=== PATIENT | female | born 1990 | race Caucasian/White ===

== ENCOUNTER 2019-05-28 08:00 | Inpatient (IN) ==
[2019-05-28] MEDS ORDERED: Ondansetron 4 MG/2 ML VIAL IVP PRN ×3 (08:25→10:13)
[2019-05-28] MEDS ORDERED: *HR* Nalbuphine 10 MG/ML AMPUL IVP PRN ×3 (08:25→10:14)
[2019-05-28] MEDS ORDERED: Famotidine 20 MG/2 ML VIAL IVP PRN ×3 (08:25→10:12)
[2019-05-28] MEDS ORDERED: Lidocaine 1% 20 ML MDV INFILT PRN (08:25)
[2019-05-28] MEDS ORDERED: Naloxone 0.4 MG/ML INJ IVP PRN ×3 (08:25→10:12)
[2019-05-28] MEDS ORDERED: Metoclopramide 10 MG/2 ML VIAL IVP PRN ×3 (08:25→10:10)
[2019-05-28] MEDS ORDERED: Oxytocin 20 units/ LR 1000 mL 20 UNIT/1,000 ML BAG IVC SCH ×3 (08:30→21:57)
[2019-05-28] MEDS ORDERED: Ringers Solution, Lactated 1,000 ML IVC SCH (08:30)
[2019-05-28 09:37] LABS: Basophils % 0.2 %; Eosinophils # 0.1 K/mcL (0.0-0.6); Eosinophils % 0.4 %; Hematocrit 41.9 % (35.3-44.9); Hemoglobin 14.5 g/dL (11.5-15.4); Immature Granulocytes % 0.8 % (0-4); Lymphocytes # 2.6 K/mcL (0.6-4.6); Mean Corpuscular HGB Conc 34.6 g/dL (31.6-35.5); Mean Corpuscular Hemoglobin 33.6 pg (28.0-33.3); Mean Corpuscular Volume 97.2 fL (83.0-100.0); Mean Platelet Volume 8.7 fL (9.4-12.4); Monocytes # 1.2 K/mcL (0.0-1.3); Monocytes % 8.3 %; Neutrophils # 10.6 K/mcL (1.6-8.9); Platelet Count 214 K/mcL (140-400); Red Blood Count 4.31 M/mcL (3.82-4.97); Red Cell Distribution Width 13.5 % (11.5-14.5); Segmented Neutrophils % 72.3 %; White Blood Count 14.6 K/mcL (4.3-11.1)
[2019-05-28] MEDS ORDERED: Epidural Premix (fent/bupiv) 110 ML EP SCH (13:45)
[2019-05-28] MEDS ORDERED: Ringers Solution, Lactated 1,000 ML ONE (14:01)
[2019-05-28] MEDS ORDERED: EPHEDrine 50 MG/ML VIAL ONE (14:54)
[2019-05-28] MEDS ORDERED: Benzocaine/Menthol 56 GM AEROSOL SPRAY TP PRN (21:57)
[2019-05-28] MEDS ORDERED: Acetaminophen 325 MG TABLET PO PRN (21:57)
[2019-05-28] MEDS ORDERED: Lanolin 7 G OINT...G. TP PRN (21:57)
[2019-05-28] MEDS ORDERED: Ibuprofen 600 MG TABLET PO PRN (21:57)
[2019-05-29 07:47] VITALS: BP 129/86
[2019-05-29] MEDS ORDERED: Prenatal Vit/FA 1 EACH TABLET PO SCH (09:00)
== END 2019-05-29 14:20 | disposition home or self-care (01) | DRG 806 ==
LOC: 1NENULAB 08:11 → 1NENUOBS 21:57
PROVIDERS: ADMIT Advanced Practice Midwife; ATTEND Advanced Practice Midwife